=== PATIENT | female | born 1975 | race Two or more races ===

== ENCOUNTER 2016-12-12 18:23 | Emergency (ER) | payer MEDICAID ==
[~2016-12-12] VITALS: Ht 165.1 cm; Wt 133.8 kg
[~2016-12-12 18:23] MED LIST: AMOX-277 PO; CIPR-173 PO; ENAL20TA70 PO; FER325T PO; GABA400C PO; GLYB5TAB8 PO; MEDR5TAB PO; MELO-86 PO; METR500T PO; ONDA4TAB5 PO; PANT1INJ3 PO; RANI-226 PO; TRAM-297 PO
[2016-12-12 19:01] LABS: Basophils # (auto) 0.3 uL; CONDITION Y; Eosinophils # (auto) 0.4 uL; Eosinophils % (auto) 2.5 % (0.0-7.0); Hematocrit 47.7 % (36.0-46.0); Hemoglobin 15.9 g/dL (12.2-16.2); Lymphocytes # (auto) 3.9 uL; Lymphocytes % (auto) 27.3 % (10.0-50.0); Mean Corpuscular Hemoglobin 28.3 pg (28.0-32.0); Mean Corpuscular Hgb Conc. 33.3 g/dL (32.0-36.0); Mean Corpuscular Volume 84.8 fL (80.0-100.0); Mean Platelet Volume 11.5 fL (7.4-10.4); Monocytes # (auto) 0.7 uL; Neutrophils # (auto) 9.1 uL; Neutrophils % (auto) 63.2 % (37.0-80.0); Platelet Count (auto) 273 10^3/uL (140-450); Red Cell Distribution Width 16.3 % (11.6-16.0); White Blood Cell 14.4 10^3/uL (4.4-10.8)
[2016-12-12 19:19] LABS: Albumin 2.9 g/dL (3.4-5.0); BUN/Creatinine Ratio 12.1; Bilirubin, Total 1.3 mg/dL (0.2-1.0); Calcium 8.8 mg/dL (8.5-10.1); Potassium 3.8 mmol/L (3.5-5.1); Total Protein 7.4 g/dL (6.4-8.2)
[2016-12-12 21:39] LABS: Urine Blood 3+ /uL (Negative); Urine Ca Oxalate Crystal FEW (None Seen); Urine Color Brown (Yellow); Urine Glucose Normal (Normal); Urine Ketone 1+ (Negative); Urine Mucus MODERATE (None Seen); Urine Nitrite POSITIVE (Negative); Urine RBC 3604 /hpf (0 - 4); Urine pH 6.5 (5.0-8.0)
[2016-12-12 22:00] LABS: Urine Bilirubin Negative (Negative)
[2016-12-13] MEDS ORDERED: HYDROcodone-ACET 10/325MG TAB PO ONE (01:15)
[2016-12-13] MEDS ORDERED: CLINDAMYCIN HCL 150 MG CAP PO ONE (01:15)
[2016-12-13 02:46] VITALS: BP 112/68
== END 2016-12-13 02:49 | disposition home or self-care (01) ==
LOC: ER 18:25
DX: R10.9 Unspecified abdominal pain (principal); F17.210 Nicotine dependence, cigarettes, uncomplicated; E11.9 Type 2 diabetes mellitus without complications; I10 Essential (primary) hypertension; Z79.899 Other long term (current) drug therapy; Z90.49 Acquired absence of other specified parts of digestive tract; Z48.01 Encounter for change or removal of surgical wound dressing
CPT/HCPCS: 36415; 80053; 81001; 85025